=== PATIENT | male | born 1990 | race African-American/Black ===

== ENCOUNTER 2017-04-30 00:48 | Emergency (ER) | payer SELFPAY ==
[~2017-04-30] VITALS: Ht 175.3 cm; Wt 95.0 kg
[~2017-04-30 00:48] MED LIST: EPIP0.3I IM; PRED20 PO
[2017-04-30 00:58] VITALS: BP 156/82; PULSE 88; RESP 16; TEMP 98.2; O2SAT 98
[2017-04-30] MEDS ORDERED: NYSTATIN 100,000 U/GM PWD 15 GM BTL TOPICAL ONE (01:15)
[2017-04-30] MEDS ORDERED: FLUCONAZOLE 100 MG TAB PO ONE (01:15)
[2017-04-30] MEDS ORDERED: NYST10007 TOPICAL ×2 (01:49→01:54)
--- NOTE | 2017-04-30 01:55 | PD ---
HPI Chief Complaint: Pain: Acute or Chronic Time Seen by Provider: 00:53 Travel History International Travel<30 days: No Contact w/Intl Traveler<30days: No Traveled to known affect area: No History of Present Illness HPI Patient is a 26-year-old male presenting to the emergency department for evaluation of bilateral foot pain. Patient states his feet have been sore for the last 2 days, he rates his pain a 10 out of 10. Symptom onset was gradual, symptoms are exacerbated with walking and wearing shoes. Symptoms are not alleviated by anything. Patient states he has been walking a lot and working. He reports that his feet have been wet. He denies any fever, chills, swelling. PFSH Past Medical History Medical History: Denies Significant Hx Diminished Hearing: No Immunizations Current: Yes Seizures: Yes ("CHILDHOOD") Tetanus Vaccination: Unknown Influenza Vaccination: No Past Surgical History Surgical History: No Previous Surgery Social History Alcohol Use: Yes (OCCASIONAL) Tobacco Use: Yes (1/2 PPD) Substance Use: No Allergies-Medications (Allergen,Severity, Reaction): Coded Allergies: shrimp (Verified Allergy, Severe, Anaphylaxis, 03/31/17) Reported Meds & Prescriptions Reported Meds & Active Scripts Active No Active Prescriptions or Reported Medications Review of Systems Except as stated in HPI: all other systems reviewed are Neg Musculoskeletal: Positive: Pain Skin: Positive Rash, Positive Lesions Physical Exam Narrative GENERAL: Well-developed, well-nourished, alert -Cypriot male. Presenting in no acute distress. SKIN: Superficial excoriations noted to the dorsal aspect of feet bilaterally. Excoriations noted in between patient's toes, skin is damp. HEAD: Normocephalic. EYES: No scleral icterus. No injection or drainage. NECK: Supple, trachea midline. No JVD or lymphadenopathy. CARDIOVASCULAR: Regular rate and rhythm without murmurs, gallops, or rubs. RESPIRATORY: Breath sounds equal bilaterally. No accessory muscle use. GASTROINTESTINAL: Abdomen soft, non-tender, nondistended. MUSCULOSKELETAL: No cyanosis, or edema. 2+ dorsalis pedal pulses bilaterally. BACK: Nontender without obvious deformity. No CVA tenderness. Data Data Last Documented VS Vital Signs Date Time Temp Pulse Resp B/P (MAP) Pulse Ox O2 Delivery O2 Flow Rate FiO2 04/30/17 00:58 98.2 88 16 156/82 (106) 98 Orders Orders Fluconazole (Diflucan) (04/30/17 01:15) Nystatin Powder (Mycostatin Powder) (04/30/17 01:15) ^ Cleanse Wound With (04/30/17 01:08) MDM Medical Decision Making Medical Screen Exam Complete: Yes Emergency Medical Condition: Yes Interpretation(s) Vital Signs Date Time Temp Pulse Resp B/P (MAP) Pulse Ox O2 Delivery O2 Flow Rate FiO2 04/30/17 00:58 98.2 88 16 156/82 (106) 98 Differential Diagnosis Cellulitis versus tinea versus myalgias versus other Narrative Course Patient is a 26-year-old male presenting for evaluation of bilateral foot pain. Patient's vital signs are stable. Physical exam this appears most consistent with tinea pedis. Patient had labs drawn 1 month ago. Labs reviewed, there were no acute abnormalities noted. Patient was given Diflucan 150 mg p.o. 1 dose, his feet were cleaned and nystatin powder was applied. Patient was advised that he will need to keep his feet clean and dry. He was encouraged to take his feet out of his shoes to let them dry out as often as possible. He was encouraged to use powder as directed. Is encouraged to return to emergency department for any new or worsening symptoms. Patient stable for discharge. Diagnosis Primary Impression: Tinea pedis of both feet Referrals: [facility] Patient Instructions: Athlete's Foot (ED), General Instructions, Tinea Pedis ( DC) Additional Instructions: Follow-up with your primary doctor or at the [facility] Use medications as directed Keep feet clean and dry Return to emergency department for any worsening symptoms Med/Other Pt SpecificInfo: Prescription(s) given Scripts Nystatin Topical (Nystop Topical) 100,000 Unit/Gm Powd 1 APPLIC TOPICAL Q12HR for Infection, #60 GM 0 Refills Prov: Deisi Carlisle 04/30/17 Disposition: 01 DISCHARGE HOME Condition: Stable Deisi Carlisle Apr 30, 2017 01:55
== END 2017-04-30 06:50 | disposition home or self-care (01) ==
LOC: NEPD 00:48
DX: B35.3 Tinea pedis (principal); F17.210 Nicotine dependence, cigarettes, uncomplicated
CPT/HCPCS: 99283

== ENCOUNTER 2017-05-31 21:45 | Emergency (ER) | payer SELFPAY ==
[~2017-05-31] VITALS: Ht 182.9 cm; Wt 90.0 kg
[~2017-05-31 21:45] MED LIST changes: -EPIP0.3I IM; +NYST10007 TOPICAL; -PRED20 PO
[2017-05-31 22:03] VITALS: BP 153/87; PULSE 109; RESP 16; TEMP 97.6; O2SAT 99
[2017-05-31 23:00] VITALS: PULSE 88
[2017-05-31 23:36] LABS: BILIRUBIN, URINE NEG (NEG); BLOOD, URINE NEG (NEG); GLUCOSE,URINE NEG (NEG); KETONE, URINE NEG (NEG); MUCUS URINE FEW /lpf (OCC); NITRITE,URINE NEG (NEG); URINE COLOR YELLOW (YELLW/STRAW); URINE LEUKOCYTE ESTERASE NEG (NEG)
[2017-06-01] MEDS ORDERED: cefTRIAXone 250 MG VIAL IM ONE (00:15)
[2017-06-01] MEDS ORDERED: AZITHROMYCIN PWD FOR SUSP 1 GM PACKET PO ONE (00:15)
[2017-06-01] MEDS ORDERED: LIDOCAINE HCL 1% 50 ML VIAL XX ONE (00:15)
--- NOTE | 2017-06-01 00:21 | PD ---
HPI Chief Complaint: Cold / Flu Symptoms Time Seen by Provider: 23:49 Travel History International Travel<30 days: No Contact w/Intl Traveler<30days: No Traveled to known affect area: No History of Present Illness HPI 26yo M with no PMH presents to the ED with multiple complaints. Pt said he has generalized bodyaches and cough. Also with throat pain for 1 day. Also with penile discharge and dysuria for 2 days. Said he has been having unprotected sex and wants to be treated for STI. Denies any fever, chest pain, sob, n/v, abdominal pain, focal weakness or numbness. PFSH Past Medical History Medical History: Denies Significant Hx Diminished Hearing: No Immunizations Current: Yes Seizures: Yes ("CHILDHOOD") Tetanus Vaccination: Unknown Influenza Vaccination: No Past Surgical History Surgical History: No Previous Surgery Social History Alcohol Use: Yes (OCCASIONAL) Tobacco Use: Yes (1/2 PPD) Substance Use: No Allergies-Medications (Allergen,Severity, Reaction): Coded Allergies: shrimp (Verified Allergy, Severe, Anaphylaxis, 05/31/17) Reported Meds & Prescriptions Reported Meds & Active Scripts Active No Active Prescriptions or Reported Medications Review of Systems Except as stated in HPI: all other systems reviewed are Neg Physical Exam Narrative GENERAL: 26yo M in mild distress. SKIN: Focused skin assessment warm/dry. HEAD: Atraumatic. Normocephalic. EYES: Pupils equal and round. No scleral icterus. No injection or drainage. ENT: Throat: Uvula midline.No exudate. NECK: Trachea midline. No JVD. CARDIOVASCULAR: Regular rate and rhythm. No murmur appreciated. RESPIRATORY: No accessory muscle use. Clear to auscultation. Breath sounds equal bilaterally. GASTROINTESTINAL: Abdomen soft, non-tender, nondistended. : No testicular ttp. No penile rash. No discharge seen. MUSCULOSKELETAL: No obvious deformities. No clubbing. No cyanosis. No edema. NEUROLOGICAL: Awake and alert. No obvious cranial nerve deficits. Motor grossly within normal limits in all extremities. Sensation intact. Normal speech. PSYCHIATRIC: Appropriate mood and affect; insight and judgment normal. Data Data Last Documented VS Vital Signs Date Time Temp Pulse Resp B/P (MAP) Pulse Ox O2 Delivery O2 Flow Rate FiO2 05/31/17 23:00 88 05/31/17 22:57 18 100 05/31/17 22:03 97.6 Room Air Orders Orders Influenzae A/B Antigen (05/31/17 22:56) Group A Rapid Strep Screen (05/31/17 22:56) Urinalysis - C+S If Indicated (05/31/17 23:01) Gc And Chlamydia Pcr (05/31/17 23:01) Strep Culture (Group A) (05/31/17 23:00) Azithromycin Powd Pack (Zithromax Powd P (06/01/17 00:15) Ceftriaxone Inj (Rocephin Inj) (06/01/17 00:15) Lidocaine 1% Inj (50 Ml) (Xylocaine 1% I (06/01/17 00:15) Acetaminophen (Tylenol) (06/01/17 02:00) Labs Laboratory Tests Test 05/31/17 23:05 Urine Color YELLOW Urine Turbidity CLEAR Urine pH 6.0 Urine Specific [place] 1.031 Urine Protein TRACE mg/dL Urine Glucose (UA) NEG mg/dL Urine Ketones NEG mg/dL Urine Occult Blood NEG Urine Nitrite NEG Urine Bilirubin NEG Urine Urobilinogen LESS THAN 2.0 MG/DL Urine Leukocyte Esterase NEG Urine RBC 1 /hpf Urine WBC LESS THAN 1 /hpf Urine Mucus FEW /lpf Microscopic Urinalysis Comment CULT NOT INDICATED MDM Medical Decision Making Medical Screen Exam Complete: Yes Emergency Medical Condition: Yes Differential Diagnosis STI vs. UTI vs. influenza vs. viral syndrome Narrative Course 26yo M with flu like symptoms as well as STI symptoms. Pt wants to be empirically treated so given ceftriaxone and azithromycin. UA showed less than 1 WBC. Culture not indicated. Influenza negative. Group A strep negative. Pt given acetaminophen and feels better. HR improved to 88bpm. Return precautions given. Diagnosis Primary Impression: STI (sexually transmitted infection) Patient Instructions: General Instructions Departure Forms: Tests/Procedures Additional Instructions: Please follow up with your primary care physician in 2-3 days. Return to the ED if symptoms worsen. Med/Other Pt SpecificInfo: Prescription(s) given Scripts Acetaminophen (Tylenol) 325 Mg Tab 650 MG PO Q6H Y for PAIN SCALE 1 TO 4, #20 TAB 0 Refills Prov: Naty Pruitt DO 06/01/17 Disposition: 01 DISCHARGE HOME Condition: Stable Naty Pruitt Jun 01, 2017 00:21
[2017-06-01] MEDS ORDERED: ACETAMINOPHEN 325 MG TAB PO ONE (02:00)
[2017-06-01] MEDS ORDERED: TYLE325T PO (03:31)
[2017-06-01] MEDS ORDERED: KETOROLAC TROMETHAMINE 60 MG/2 ML (IM) VIAL IM ONE (03:45)
== END 2017-06-01 04:11 | disposition home or self-care (01) ==
LOC: NEPC 21:45
DX: A64 Unspecified sexually transmitted disease (principal); R52 Pain, unspecified; R05 Cough; R07.0 Pain in throat; R56.9 Unspecified convulsions; F17.200 Nicotine dependence, unspecified, uncomplicated
CPT/HCPCS: 81001; 87081; 87491; 87591; 87804; 87880; 96372; 99283; J0696; J1885

== ENCOUNTER 2017-07-17 18:27 | Emergency (ER) | payer SELFPAY ==
[~2017-07-17 18:27] MED LIST changes: -NYST10007 TOPICAL; +TYLE325T PO
[2017-07-17 18:33] VITALS: BP 127/59; PULSE 108; RESP 20; TEMP 98.5; O2SAT 97
--- NOTE | 2017-07-17 19:07 | PD ---
HPI Chief Complaint: Cold / Flu Symptoms Time Seen by Provider: 18:46 Travel History International Travel<30 days: No Contact w/Intl Traveler<30days: No Traveled to known affect area: No History of Present Illness HPI 26-year-old male presents with multiple complaints. His first complaint is sore throat, nasal congestion, cough, body aches that started yesterday. He is also complaining of burning on urination that started yesterday. Says he has penile discharge. Denies testicular pain, penile pain, testicular swelling. He was with a new sexual partner a few days ago and all his symptoms started altogether. Reports subjective fever but has not taken his temperature cannot report a T-max. Denies vomiting. Denies abdominal pain. Has not taken any medications or tried any treatments to alleviate his symptoms. Aggravated with urination. No known relieving factors. No primary care provider. Allergies to shrimp. Denies significant past medical history. Has no other medical complaints. No other modifying factors or associated signs and symptoms. PFSH Past Medical History Diminished Hearing: No Immunizations Current: Yes Seizures: Yes ("CHILDHOOD") Social History Alcohol Use: Yes (OCCASIONAL) Tobacco Use: Yes (/2 PPD) Substance Use: No Allergies-Medications (Allergen,Severity, Reaction): Coded Allergies: shrimp (Verified Allergy, Severe, Anaphylaxis, 07/17/17) Reported Meds & Prescriptions Reported Meds & Active Scripts Active Augmentin (Amoxicillin-Clavulanate) 875-125 Mg Tab 1 Tab PO BID 7 Days Review of Systems Except as stated in HPI: all other systems reviewed are Neg Physical Exam Narrative GENERAL: Well-nourished, well-developed patient, in no acute distress SKIN: Warm and dry. No rash. HEAD: Atraumatic. Normocephalic. EYES: Pupils equal and round at 3 mm with brisk reaction. No scleral icterus. No injection or drainage. PERRLA. ENT: Mucosa pink and dry. Oropharynx without erythema, exudate, and edema. No uvular edema. No uvular, palatal, or tonsillar deviation. Airway patent. EARS: Bilateral pinnae and external canals appear within normal limits. Bilateral tympanic membranes without erythema, dullness or perforation.. NECK: Trachea midline. No anterior cervical lymphadenopathy and tenderness. CARDIOVASCULAR: Regular rate and rhythm. No murmur appreciated. RESPIRATORY: No accessory muscle use. Clear to auscultation. Breath sounds equal bilaterally. GASTROINTESTINAL: Abdomen soft, non-tender, nondistended. Hepatic and splenic margins not palpable. Bowel sounds are active 4 quadrants. GENITOURINARY: Exam done in the presence of a nurse. Circumcised. Testes descended bilaterally without evidence of rotation. No lesions or erythema. No urethral discharge. MUSCULOSKELETAL: No obvious deformities. No clubbing. No cyanosis. No edema. NEUROLOGICAL: Awake and alert. Oriented 3. No obvious cranial nerve deficits. Motor grossly within normal limits. Normal speech. Moves all extremities. PSYCHIATRIC: Appropriate mood and affect; insight and judgment normal. Data Data Last Documented VS Vital Signs Date Time Temp Pulse Resp B/P (MAP) Pulse Ox O2 Delivery O2 Flow Rate FiO2 07/17/17 18:33 98.5 108 20 127/59 (81) 97 Orders Orders Group A Rapid Strep Screen (07/17/17 19:00) Gc And Chlamydia Pcr (07/17/17 19:00) Urinalysis - C+S If Indicated (07/17/17 19:00) Strep Culture (Group A) (07/17/17 19:00) Ed Discharge Order (07/17/17 19:36) Labs Laboratory Tests Test 07/17/17 19:00 Urine Color LIGHT-YELLOW Urine Turbidity CLEAR Urine pH 6.5 Urine Specific [place] 1.023 Urine Protein NEG mg/dL Urine Glucose (UA) NEG mg/dL Urine Ketones NEG mg/dL Urine Occult Blood NEG Urine Nitrite NEG Urine Bilirubin NEG Urine Urobilinogen LESS THAN 2.0 MG/DL Urine Leukocyte Esterase NEG Urine WBC 1 /hpf Microscopic Urinalysis Comment CULT NOT INDICATED MDM Medical Decision Making Medical Screen Exam Complete: Yes Emergency Medical Condition: Yes Medical Record Reviewed: Yes Differential Diagnosis Strep pharyngitis, viral pharyngitis, viral illness, urethritis, chlamydia, gonorrhea, trichomonas Narrative Course This is a 26-year-old male who is complaining of sore throat, penile discharge and burning on urination. On exam the patient does not have any penile discharge. His physical exam is unremarkable. I reviewed his medical record and on May 31, 2017 he was here for similar complaints. He did grow group G beta strep in his throat culture. He was not positive for chlamydia and gonorrhea. The patient states he has been with a new sexual partner since then. Rapid strep, urinalysis, chlamydia, gonorrhea ordered. 1933: Urinalysis negative. Rapid strep negative. I will treat the patient with amoxicillin secondary to similar complaints back in May and the strep culture grew group G beta strep. Chlamydia and gonorrhea pending. I do not suspect urethritis without discharge noted on physical exam. Patient was negative for chlamydia and gonorrhea when he was seen here in May with similar complaints. I will wait for cultures to result for treatment if needed. Patient will be contacted if chlamydia or gonorrhea cultures are positive and he needs to come in for treatment. Patient follow-up with [facility] department. Patient provided [facility] information for follow-up. Instructed patient to follow up with primary care provider. Patient verbalizes understanding and agreement with treatment plan. Patient is medically cleared and stable for discharge. Discussed reasons to return to the emergency department. Patient agrees with treatment plan. The patients vital signs are stable and the patient is stable for outpatient follow-up and treatment. Patient discharged home, stable and in no acute distress. Diagnosis Primary Impression: Dysuria Additional Impression: Pharyngitis Qualified Codes: J02.9 - Acute pharyngitis, unspecified Referrals: [facility] Primary Care Physician [facility] Dept. Patient Instructions: Cold Symptoms (ED), Dysuria (ED), General Instructions, Pharyngitis (ED), Safe Use of Cough and Cold Medicines (ED) Additional Instructions: Avoid sexual activity for 14 days No sexual activity with your partner/s until they have been tested and/or treated and waited 14 days Inform all sexual partners within the past 3-6 months that they need to be evaluated and treated Use condoms every time you have sex Follow-up with primary care provider Return to the emergency department immediately with worsening of symptoms Take Antibiotics as prescribed and complete full course of antibiotics Throw away and change your toothbrush 24 hours after starting antibiotics Get plenty of sleep/rest Rest your voice Drink plenty of fluids to prevent dehydration Use warm saltwater gargles to soothe throat pain Use an air humidifier/turn off ceiling fans Use throat lozenges as needed for sore throat Use ibuprofen or acetaminophen as needed to relieve pain and fever Follow-up with your primary care provider within 2-4 days Return immediately to the emergency department with worsening of symptoms Med/Other Pt SpecificInfo: Prescription(s) given Scripts Amoxicillin-Clavulanate (Augmentin) 875-125 Mg Tab 1 TAB PO BID for Infection for 7 Days, #14 TAB 0 Refills Prov: Luma Rendon 07/17/17 Disposition: 01 DISCHARGE HOME Condition: Stable Luma Rendon Jul 17, 2017 19:07
[2017-07-17 19:20] LABS: BILIRUBIN, URINE NEG (NEG); BLOOD, URINE NEG (NEG); GLUCOSE,URINE NEG (NEG); KETONE, URINE NEG (NEG); NITRITE,URINE NEG (NEG); PH, URINE 6.5 (5.0-8.5); URINE COLOR LIGHT-YELLOW (YELLW/STRAW); URINE LEUKOCYTE ESTERASE NEG (NEG)
[2017-07-17] MEDS ORDERED: AUGM875T3 PO (19:34)
== END 2017-07-17 19:53 | disposition home or self-care (01) ==
LOC: NEPK 18:27
DX: R30.0 Dysuria (principal); J02.9 Acute pharyngitis, unspecified; R36.9 Urethral discharge, unspecified; R09.81 Nasal congestion; R05 Cough; F17.200 Nicotine dependence, unspecified, uncomplicated; Z86.69 Personal history of other diseases of the nervous system and sense organs
CPT/HCPCS: 81001; 87081; 87491; 87591; 87880; 99283

== ENCOUNTER 2017-07-29 07:48 | Emergency (ER) | payer SELFPAY ==
[2017-07-29] MEDS: IBUPROFEN 800 MG TAB PO (08:53)
== END 2017-07-29 08:53 | disposition home or self-care (01) ==
LOC: NEPD 07:48
DX: K08.89 Other specified disorders of teeth and supporting structures (principal); K02.9 Dental caries, unspecified; F17.200 Nicotine dependence, unspecified, uncomplicated
CPT/HCPCS: 99283

== ENCOUNTER 2017-09-09 11:58 | Emergency (ER) | payer OTHER ==
[~2017-09-09] VITALS: Ht 175.3 cm; Wt 90.0 kg
[~2017-09-09 11:58] MED LIST changes: +AMOX500C PO; +IBUP1TAB7 PO; +PERI0.126 SWISH-SPIT; -TYLE325T PO
[2017-09-09 12:08] VITALS: BP 124/77; PULSE 84; RESP 18; TEMP 98.2; O2SAT 97
[2017-09-09] MEDS ORDERED: KETOROLAC TROMETHAMINE 60 MG/2 ML (IM) VIAL IM ONE (12:15)
[2017-09-09] MEDS ORDERED: ORPHENADRINE INJ 60 MG/2 ML AMP IM ONE (12:15)
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
[2017-09-09] MEDS ORDERED: IBUP1TAB7 PO (13:28)
[2017-09-09] MEDS ORDERED: CYCL10TA PO (13:28)
== END 2017-09-09 14:02 | disposition home or self-care (01) ==
LOC: NEDAMB 11:58
DX: M25.562 Pain in left knee (principal); M25.572 Pain in left ankle and joints of left foot; M54.5 Low back pain; M79.1 Myalgia; F17.210 Nicotine dependence, cigarettes, uncomplicated; V09.20XA Pedestrian injured in traffic accident involving unspecified motor vehicles, initial encounter; Y92.410 Unspecified street and highway as the place of occurrence of the external cause
CPT/HCPCS: 72050; 72100; 73564; 73610; 96372; 99284; J1885; J2360